=== PATIENT | female | born 1995 | race African-American/Black ===

== ENCOUNTER 2019-04-28 20:15 | Inpatient (IN) ==
[2019-04-28 20:46] LABS: Apearance,Urine CLEAR (Clear); Bacteria,Urine Occasional /HPF (Few); Bilirubin,Urine Negative (Negative); Blood, Urine Negative (Negative); Glucose,Urine (UA) Negative (Negative); Hyaline Casts,Urine 2 /LPF (0-3); Ketones,Urine 80 mg/dL (Negative); Mucus,Urine Many /LPF (Occasional); Nitrite,Urine Negative (Negative); Protein,Urine Negative; RBC,Urine 2 /HPF (0-4); Squamous Epithelial Cell,Urine Occasional /HPF (0-10); Urine Color Yellow (Yellow); Urine Specific Gravity 1.018 (1.001-1.035); Urine Urobilinogen < 2.0 EU/DL (0.2-1.0); WBC,Urine 1 /HPF (0-6)
[2019-04-28] MEDS ORDERED: MEPERIDINE 25 MG/1 ML VIAL IV PRN (21:20)
[2019-04-28] MEDS ORDERED: LACTATED RINGERS 250 ML IV ONE (21:20)
[2019-04-28] MEDS ORDERED: ONDANSETRON 4 MG/2 ML VIAL IV PRN ×2 (21:20→22:55)
[2019-04-28] MEDS ORDERED: BUTORPHANOL 2 MG/ML VIAL IV PRN (21:20)
[2019-04-28] MEDS ORDERED: MEPERIDINE 50 MG/1 ML VIAL IV PRN (21:20)
[2019-04-28] MEDS ORDERED: AMPICILLIN INJ 2,000 MG in SODIUM CHLORIDE 0.9% 100 ML IV ONE (21:29)
[2019-04-28] MEDS ORDERED: LACTATED RINGERS 1,000 ML IV SCH (21:30)
[2019-04-28 21:48] LABS: Basophils % 0.3 % (0.0-0.8); Eosinophils # 0.6 10*3/uL (0.0-0.87); Eosinophils % 3.8 % (0.00-10.9); Hematocrit 33.4 VOL% (35.7-47.0); Hemoglobin 10.2 GM/DL (12.0-16.0); Immature Granulocytes % 0.8 %; Immature Granulocytes Absolute 0.13 #; Lymphocytes # 2.2 10*3/uL (1.4-4.0); Lymphocytes % 13.8 % (21.3-54.2); Mean Corpuscular HGB Conc 30.5 GM/DL (32-36); Mean Corpuscular Volume 88.8 FL (87-102); Mean Platelet Volume 9.9 FL (9.6-12.0); Monocytes % 7.4 % (1.7-12.7); Neutrophils % 73.9 % (38.7-73.9); Platelet Count 326 T/CUMM (130-400); Red Blood Count 3.76 MC/CUMM (3.8-5.5); Red Cell Distribution Width 14.3 % (9.3-17.3); White Blood Count 15.6 T/CUMM (4-12)
[2019-04-28] MEDS ORDERED: OXYTOCIN/LR 20 UNIT/1,000 ML BAG IV ONE ×2 (21:56→22:55)
[2019-04-28] MEDS ORDERED: TRANEXAMIC ACID 1,000 MG/10 ML VIAL ONE (21:57)
[2019-04-28] MEDS ORDERED: METHYLERGONOVINE 0.2 MG/1 ML AMP ONE (21:57)
[2019-04-28] MEDS ORDERED: miSOPROStoL 200 MCG TABLET ONE (21:57)
[2019-04-28] MEDS ORDERED: CARBOPROST TROMETHAMINE 250 MCG/ML AMP IM ONE (21:58)
[2019-04-28 22:14] LABS: Bilirubin,Total 0.6 MG/DL (0.2-1.0); Calcium 8.8 MG/DL (8.5-10.1); Osmolality,Calculated 278.3 MOS/KG (273-304); Total Protein 7.2 G/DL (6.4-8.3)
[2019-04-28] MEDS ORDERED: OXYTOCIN/LR 30 UNIT/1,000 ML BAG IV ONE (22:18)
[2019-04-28] MEDS ORDERED: ACETAMINOPHEN 325 MG TABLET PO PRN (22:55)
[2019-04-28] MEDS ORDERED: MEASLES/MUMPS/RUBELLA VACCINE 0.5 ML VIAL SUBCUT ONE (22:55)
[2019-04-28] MEDS ORDERED: LANOLIN 50% CREAM 0.3 OZ TUBE TOP PRN (22:55)
[2019-04-28] MEDS ORDERED: DIPH/TET/ACEL PERT BOOSTER VACCINE 0.5 ML VIAL IM ONE (22:55)
[2019-04-28] MEDS ORDERED: BISACODYL 10 MG SUPP RECTAL PRN (22:55)
[2019-04-28] MEDS ORDERED: oxyCODONE/ACETAMINOPHEN 5-325 MG TABLET PO PRN ×2 (22:55)
[2019-04-28] MEDS ORDERED: RHO(D) IMMUNE GLOBULIN 300 MCG SYRINGE IM ONE (22:55)
[2019-04-28] MEDS ORDERED: IBUPROFEN 800 MG TABLET PO PRN (22:55)
[2019-04-28] MEDS ORDERED: BENZOCAINE 20%/MENTHOL 0.5% SPRAY 56 GM CAN TOP PRN (22:55)
[2019-04-28] MEDS ORDERED: WITCH HAZEL PADS 100/JAR TOP PRN (22:55)
[2019-04-28] MEDS ORDERED: HYDROCORTISONE 2.5% RECTAL CREAM 30 GM TUBE TOP PRN (22:55)
[2019-04-28 23:16] LABS: HIV Antigen/Antibody Result Nonreactive (Nonreactive); Hepatitis B Surface Ag Quant < 0.10 Index; Hepatitis B Surface Ag Result Negative (Negative); Rubella Antibody IgG 81.3 IU/ML
[2019-04-29 04:58] LABS: Basophils % 0.2 % (0.0-0.8); Eosinophils # 0.1 10*3/uL (0.0-0.87); Eosinophils % 0.7 % (0.00-10.9); Hematocrit 29.9 VOL% (35.7-47.0); Hemoglobin 9.3 GM/DL (12.0-16.0); Immature Granulocytes % 0.7 %; Immature Granulocytes Absolute 0.14 #; Lymphocytes # 1.6 10*3/uL (1.4-4.0); Lymphocytes % 8.6 % (21.3-54.2); Mean Corpuscular HGB Conc 31.1 GM/DL (32-36); Mean Corpuscular Volume 87.9 FL (87-102); Mean Platelet Volume 10.4 FL (9.6-12.0); Monocytes % 7.4 % (1.7-12.7); Neutrophils % 82.4 % (38.7-73.9); Platelet Count 310 T/CUMM (130-400); Red Cell Distribution Width 14.3 % (9.3-17.3)
[2019-04-29] MEDS: DOCUSATE SODIUM 100 MG CAPSULE PO SCH ×2 (09:56→20:39)
[2019-04-29] MEDS: FERROUS SULFATE 325 MG TABLET PO SCH ×2 (09:56→20:39)
[2019-04-29] MEDS ORDERED: INFLUENZA VIRUS VACCINE 0.5 ML SYRINGE IM ONE (12:00)
[2019-04-30 08:46] VITALS: BP 126/67
[2019-04-30] MEDS: DOCUSATE SODIUM 100 MG CAPSULE PO SCH (10:02)
[2019-04-30] MEDS: FERROUS SULFATE 325 MG TABLET PO SCH (10:02)
== END 2019-04-30 15:35 | disposition home or self-care (01) | DRG 560 ==
LOC: N.LDOUT 20:15 → N.LD 20:16 → N.OB 04-29 00:45
PROVIDERS: ADMIT Obstetrics & Gynecology; ATTEND Obstetrics & Gynecology